=== PATIENT | male | born 1990 | race Asian ===

== ENCOUNTER 2023-07-22 23:28 | Emergency (ER) | payer SELFPAY ==
[2023-07-22 23:41] VITALS: BP 152/94
[2023-07-22] MEDS: ZOFRAN ODT (ORALLY DISINTEGRATING) 4 MG PO (23:48)
[2023-07-23 00:09] LABS: Hematocrit 39.7 % (39.0-52.0); Hemoglobin 12.5 g/dL (13.0-18.0); Mean Corp Hgb Conc. 31.5 g/dL (33.0-37.0); Mean Corpuscular Hgb 18.7 pg (27.0-31.0); Mean Corpuscular Volume 59.3 fL (80.0-94.0); Mean Platelet Volume 9.3 fL (7.4-10.4); Platelet Count 365 10^3/uL (130-400); Red Cell Dist. Width 18.2 % (11.5-14.5); White Blood Cell Count 11.2 10^3/uL (4.8-10.8)
[2023-07-23 00:32] LABS: Blood Urea Nitrogen 10 mg/dl (9-20); Calcium 9.8 mg/dl (8.4-10.2); Carbon Dioxide 27 mmol/L (22-30); Chloride 101 mmol/L (98-107); Glucose 114 mg/dl (70-99); Sodium 137 mmol/L (135-145); eGFR > 60.00
--- NOTE | 2023-07-23 05:59 | ED.GENMED ---
History of Present Illness
General
Chief Complaint: Abdominal Symptoms
Time Seen by Provider: 07/23/23 05:59
Travel History
Have you had any contact with someone who has COVID-19?: No
Do you have any symptoms of coronavirus? Fever > 100 degrees, chills, cough, shortness of breath, sore throat, loss of taste or smell, muscle aches, or headache?: No
History of Present Illness
History of Present Illness:
HPI: At about 10 PM last night while at work, the patient hiccupped and then had severe chest pain. He vomited 3 times and describes generalized pain with hematemesis. He has had no blood in the stool. He still has some ongoing chest discomfort.
He has never had anything like this before.
EXAM:
GENERAL: Well appearing in minimal distress
HEENT: Moist oral mucosa
CARDIOVASCULAR: No murmurs, normal heart rate, regular rhythm, No chest wall tenderness
PULMONARY: No respiratory distress, breath sounds are clear and equal
ABDOMEN: Soft with no peritoneal signs, no tenderness
NEUROLOGIC: Excellent strength all extremities, no coordination deficits
PSYCHIATRIC: Appropriate mental status, normal insight and judgement
EXTREMITIES: Nontender, no edema, moves all extremities equally
SKIN: No rash, no lesions
TIME OF INITIAL ENCOUNTER: 6:05 AM
NUMBER AND COMPLEXITY OF PROBLEMS ADDRESSED AT THE ENCOUNTER
� Chronic conditions affecting care: Asthma
� Acute Exacerbation and/or Progression of Chronic Illness: This is an acute problem
� Differential Diagnosis includes: Food bolus obstruction, esophagitis, gastritis
AMOUNT AND/OR COMPLEXITY OF DATA TO BE REVIEWED AND ANALYZED
� I performed an independent evaluation of and my interpretation is:
EKG:
CT:
X-rays: I personally reviewed chest x-ray and see no acute abnormality
Laboratory Studies: White count 11.2, hemoglobin 12.5, chemistries unremarkable
Other:
� Review of other/old records: No old records available for review in [facility]
� Clinical information was obtained by an independent historian:
� Prescriptions/Medications Considered but not given:
� Further testing considered but not performed:
RISK OF COMPLICATIONS AND/OR MORBIDITY OR MORTALITY OF PATIENT MANAGEMENT
� Social determinants of health affecting care: Lives at home
� Discussion with other providers: I contacted the GI front office to expedite close outpatient follow-up
� Escalation of care including admission/observation vs risk of discharge considered: I gave the patient some water and this seemed to go down without difficulty. He does have some ongoing nausea and was given Zofran while in
the waiting room about 7 hours ago but some nausea persists. He appears well-hydrated. His symptoms started a couple hours after ingesting the pineapple drink and eating. He still has ongoing symptoms on reassessment at 8 AM however the patient
appears fairly comfortable on reassessment. Gave prescription for Zofran and recommended PPI.
Phy Exam
Physical Exam
Physical Exam:
See HPI
Course
Orders/Labs/Results
Orders:
Orders
07/22/23 23:45
Ondansetron Orally Disint [Zofran Odt (Orally Disintegrating)] 4 mg .ROUTE .STK-MED ONE
07/22/23 23:48
Ondansetron Orally Disint [Zofran Odt (Orally Disintegrating)] 4 mg PO NOW STA
07/22/23 23:58
BMP [Basic Metabolic Panel] Urgent
Complete Blood Count/No Diff Urgent
07/23/23 06:07
Famotidine [Pepcid] 20 mg PO NOW STA
Ondansetron Orally Disint [Zofran Odt (Orally Disintegrating)] 4 mg PO NOW STA
CR Chest - 2 Views Urgent
Comment:
Reason For Exam: CP vomiting hematemesis
Abnormal Lab Results
07/23/23
00:04
WBC 11.2 H 10^3/uL
(4.8-10.8)
RBC 6.70 H 10^6/uL
(4.70-6.10)
Hgb 12.5 L g/dL
(13.0-18.0)
MCV 59.3 L fL
(80.0-94.0)
MCH 18.7 L pg
(27.0-31.0)
MCHC 31.5 L g/dL
(33.0-37.0)
RDW 18.2 H %
(11.5-14.5)
Glucose 114 H mg/dl
(70-99)
07/23/23 00:04
07/23/23 00:04
Vital Signs
Initial and Last Documented VS:
Initial Vital Signs
Temp Pulse Resp BP Pulse Ox
98 F 84 18 152/94 98
07/22/23 23:41 07/22/23 23:41 07/22/23 23:41 07/22/23 23:41 07/22/23 23:41
Last Documented Vital Signs
Temp Pulse Resp BP Pulse Ox
98 F 70 16 117/85 97
07/22/23 23:41 07/23/23 06:52 07/23/23 06:52 07/23/23 08:00 07/23/23 08:00
*Critical Care Note
Total Time (30-74mins, 75-104mins- exclusive of procedures): Not Applicable
ED Attending Note
-
Portions of this chart may have been created with voice recognition software.� Occasional wrong word or��sound alike� substitutions may have occurred due to the inherent limitations of voice recognition software.
Discharge Plan
Departure
Patient Disposition: Home (Routine Discharge)
Date of Disposition: 07/23/23
Time of Disposition: 07:50
Patient with high blood pressure during this ER visit?: Yes
Discharge Problem:
Esophagitis
Prescriptions:
New
ondansetron HCl 4 mg tablet
4 mg PO TID PRN (Reason: nausea and vomiting) Qty: 10 0RF
Referrals:
Ulysses Saunders MD [Active] - Follow up in 2-3 days
Kayce Romano CRNP [Family Provider] -
Stand Alone Forms: Return to Work
Activity Restrictions/Additional Instructions:
The cause of your symptoms is unclear. I recommend that you take a 2-week course of [id number] omeprazole. I prescribed a nausea medicine and sent it to your pharmacy. I also contacted GI and they should be calling you for follow-up.
Interventions
Interventions:
*Risk Screen - Suicide Last Done: 07/22/23 23:41
*General Assessment Last Done: 07/23/23 06:52
*Neglect/Abuse Screening Last Done: 07/22/23 23:41
ED- Fall Risk Assessment Last Done: 07/23/23 06:52
*ED COVID-19 Vaccine History Last Done: 07/23/23 06:52
*Nursing Disposition Last Done: 07/23/23 08:34
TN-Yirftv-Rpjlnccygm Assessment Last Done: 07/23/23 06:52
Discharge Date and Time
Discharge Date/Time: 07/23/23 08:35
Print Language: SURINAMESE
[2023-07-23] MEDS: ZOFRAN ODT (ORALLY DISINTEGRATING) 4 MG PO (06:20)
[2023-07-23] MEDS: PEPCID 20 MG PO (06:20)
[2023-07-23 06:52] VITALS: BP 110/82
[2023-07-23 07:13] VITALS: BP 110/78
[2023-07-23 08:00] VITALS: BP 117/85
== END 2023-07-23 08:35 | disposition home or self-care (01) ==
LOC: EMR 23:28
PROVIDERS: Emergency Medicine; EMERGENCY PHYSICIAN Emergency Medicine; FAMILY PHYSICIAN Nurse Practitioner
DX: K20.90 Esophagitis, unspecified without bleeding (principal); R03.0 Elevated blood-pressure reading, without diagnosis of hypertension
CPT/HCPCS: 99284; 71046; 80048; 85027

== ENCOUNTER → 2023-08-12 06:41 | Day surgery (SDC) | payer OTHER, SELFPAY | LOC: GI 06:41 | PROVIDERS: ATTENDING PHYSICIAN Internal Medicine Gastroenterology | DX: K92.0 Hematemesis (principal); K29.50 Unspecified chronic gastritis without bleeding | CPT/HCPCS: 43239; 88305; 88342 ==